=== PATIENT | female | born 1990 | race Caucasian/White ===

== ENCOUNTER 2017-02-26 20:05 | Outpatient (CLI) | payer BC, MEDICAID | END 2017-02-26 22:45 | disposition home or self-care (01) | DX: O47.02 False labor before 37 completed weeks of gestation, second trimester (principal); Z3A.25 25 weeks gestation of pregnancy ==

== ENCOUNTER 2017-03-24 13:50 | Outpatient (CLI) | payer BC, MEDICAID | END 2017-03-24 17:18 | disposition home or self-care (01) | LOC: BC 13:50 → 2LDRP 13:50 → BC 17:18 | DX: O99.89 Other specified diseases and conditions complicating pregnancy, childbirth and the puerperium (principal); M54.9 Dorsalgia, unspecified; Z3A.28 28 weeks gestation of pregnancy ==